=== PATIENT | male | born 1980 | race African-American/Black ===

== ENCOUNTER 2016-10-27 19:28 | Emergency (ER) | payer OTHER ==
[~2016-10-27 19:28] MED LIST: ALBUTEROL0.09 MG/A1 INH; AUGMENTIN 875875 MG PO; AZITHROMYCIN250 MG PO; MOBIC 15MG15 MG PO; PERCOCET 325 MG1 TA2 PO; PREDNISONE10 MG PO; PREDNISONE50 MG PO; PROAIR HFA0.09 MG/Ac INH; TRAMADOL50 MG PO
[2016-10-27 20:19] LABS: ABSOLUTE BASOPHIL COUNT 0 /CUMM (0.0-0.2); ABSOLUTE EOSINOPHIL COUNT 0.2 /CUMM (0.0-0.7); ABSOLUTE LYMPH COUNT 2.8 /CUMM (1.2-3.4); ABSOLUTE MONOCYTE COUNT 0.6 /CUMM (0.10-0.60); BASOPHIL % 0.2 % (0.0-2.0); EOSINOPHIL % 2.2 % (0-5); GRANULOCYTE % 62.1 % (42.2-75.2); HEMATOCRIT 43.7 % (42-52); MEAN CORPUSCULAR HGB 31.4 PG (27.0-31.0); MEAN CORPUSCULAR HGB CONC 34.3 G/DL (33.0-37.0); MEAN CORPUSCULAR VOLUME 91.5 FL (80.0-94.0); MEAN PLATELET VOLUME 7.5 FL (7.4-10.4); PLATELET COUNT 207 /CUMM (130-400); RBC DISTRIBUTION WIDTH 13.2 % (11.5-14.5); RED BLOOD CELL CT 4.78 /CUMM (4.70-6.10); WHITE BLOOD CELL COUNT 9.6 /CUMM (4.8-10.8)
[2016-10-27 21:36] VITALS: BP 111/68
--- NOTE | 2016-10-27 21:43 | ED GENERAL ADULT ---
History of Present Illness General Chief Complaint: General Adult Stated Complaint: PT DIZZY AND LIGHT HEADED IN THE AM Source: patient Exam Limitations: no limitations Vital Signs & Intake/Output Vital Signs & Intake/Output Vital Signs Date Time Temp Pulse Resp B/P Pulse O2 O2 Flow FiO2 Ox Delivery Rate 10/27 2135 98.9 78 18 111/68 96 Room Air 10/27 2034 115/64 10/27 1940 99.1 93 20 99/68 96 Room Air Allergies Coded Allergies: NO KNOWN ALLERGIES (10/15/15) Reconcile Medications No Known Home Medications Triage Note: PER PT FEELING ACHY LIGHT HEADED AND TIRED X 1 WEEK, CONGESTED AND DRY. Triage Nurses Notes Reviewed? yes Onset: Abrupt Duration: week(s): (1), constant, continues in ED Timing: recent history No Modifying Factors: none HPI: 36-year-old male comes into emergency room for further evaluation of feeling generally weak and tired and fatigued for the past week. Patient reports that today he was experiencing some lightheadedness and dizziness. Denies any chest pain or shortness of breath. Denies any fever chills but feels like he has body aches. Denies any pain currently anywhere. Denies any new medications or any other associated symptoms at this time. (PEDRO CARRILLO) Past History Travel History Traveled to [place] past 21 day No Medical History Any Pertinent Medical History? see below for history Neurological: migraine EENT: EPIGLOTITIS ACUTE BACTERIAL PHARYNGIT Cardiovascular: NONE Respiratory: NONE Gastrointestinal: NONE Hepatic: NONE Renal: NONE Musculoskeletal: SCOLIOSIS Psychiatric: NONE Endocrine: NONE Blood Disorders: NONE Cancer(s): NONE History of MRSA: No History of VRE: No History of CDIFF: No Surgical History Surgical History: N Psychosocial History Who do you live with Mother Services at Home NONE What is your primary language Maltese Tobacco Use: Current Daily Use Daily Tobacco Use Amount/Type: => 5 Cigarettes daily Family History Family History, If Any: Relation not specified for: *No pertinent family history Hx Contributory? No (PEDRO CARRILLO) Review of Systems Review of Systems Constitutional: Reports: see HPI. EENTM: Reports: no symptoms. Respiratory: Reports: no symptoms. Cardiovascular: Reports: no symptoms. GI: Reports: no symptoms. Genitourinary: Reports: no symptoms. Musculoskeletal: Reports: no symptoms. Skin: Reports: no symptoms. Neurological/Psychological: Reports: no symptoms. Hematologic/Endocrine: Reports: no symptoms. Immunologic/Allergic: Reports: no symptoms. All Other Systems: Reviewed and Negative (PEDRO CARRILLO) Physical Exam Physical Exam General Appearance: well developed/nourished, no apparent distress, alert Head: atraumatic, normal appearance Eyes: Bilateral: normal appearance, EOMI. Ears, Nose, Throat: normal pharynx, normal ENT inspection Neck: normal inspection, full range of motion Respiratory: normal breath sounds, no respiratory distress Cardiovascular: regular rate/rhythm Gastrointestinal: normal bowel sounds, soft Back: normal inspection, normal range of motion Extremities: normal inspection, normal range of motion, no edema Neurologic/Psych: awake, alert, oriented x 3, normal gait Skin: intact, normal color Core Measures ACS in differential dx? No CVA/TIA Diagnosis: No Severe Sepsis Present: No Septic Shock Present: No (PEDRO CARRILLO) Progress Differential Diagnoses I considered the following diagnoses in my evaluation of the patient: A viral syndrome, acute kidney injury, thyroid dysfunction, anemia, electrolyte imbalance, dehydration, adverse reaction to medication, Plan of Care: Orders Procedure Date/time Status URINALYSIS 10/27 2121 Complete RAPID VIRAL INFLUENZA A 10/27 2029 Complete Add-on Test (ER Only) 10/27 1950 Active TROPONIN LEVEL 10/27 1942 Complete MAGNESIUM 10/27 1942 Complete COMPREHENSIVE METABOLIC PANEL 10/27 1942 Complete CBC WITHOUT DIFFERENTIAL 10/27 1942 Complete EKG 10/27 1942 Active Laboratory Tests 10/27/162130: Urine Color YEL, Urine Clarity CLEAR, Urine pH 6.0, Ur Specific [place] 1.025, Urine Protein NEG, Urine Ketones NEG, Urine Nitrite NEG, Urine Bilirubin NEG, Urine Urobilinogen 1.0, Ur Leukocyte Esterase NEG, Ur Microscopic EXAM NOT REQUIRED, Urine Hemoglobin NEG, Urine Glucose NEG 10/27/161955: Anion Gap 8, Estimated GFR 46 L, BUN/Creatinine Ratio 5.9 L, Glucose 86, Calcium 9.0, Magnesium 2.0, Total Bilirubin 0.5, AST 21, ALT 26, Alkaline Phosphatase 82, Troponin I < 0.01, Total Protein 7.1, Albumin 4.1, Globulin 3.0, Albumin/Globulin Ratio 1.4, CBC w Diff NO MAN DIFF REQ, RBC 4.78, MCV 91.5, MCH 31.4 H, RDW 13.2, MPV 7.5, Gran % 62.1, Lymphocytes % 29.1, Monocytes % 6.4, Eosinophils % 2.2, Basophils % 0.2, Absolute Granulocytes 6.0, Absolute Lymphocytes 2.8, Absolute Monocytes 0.6, Absolute Eosinophils 0.2, Absolute Basophils 0, PUBS MCHC 34.3 10/27/16 1950: Troponin I Cancelled Initial ED EKG: normal intervals, normal p-waves, normal sinus rhythm, rate (82) (KARYNA BERTRAND,PEDRO) Departure Departure Disposition: HOME OR SELF CARE Condition: Stable Clinical Impression Primary Impression: Acute kidney injury Referrals: PATTI BARRIGA DO (PCP/Family) Additional Instructions: Follow-up with your primary care doctor for further evaluation of your elevated kidney function. Return if any other concerns worsening symptoms. Drink plenty of water at home. Please go over all results of today's visit with your primary care doctor. Contact your primary care doctor to let them know you were here in the emergency room. There may be nonspecific findings which may not be related to your visit today here in the emergency room but may require further evaluation and chronic monitoring by your primary care doctor. If you had a laceration today the chance of foreign body always remains. You should follow-up with your primary care doctor for recheck in 3-5 days for a wound check. If you had an x-ray done there is a chance that a fracture could have been missed on initial read and you should follow-up with your primary care doctor for repeat x-rays if symptoms persist. If your blood pressure was elevated here in the emergency room please have rechecked by her primary care doctor within the next 48 hours by your primary care doctor. If you were prescribed a narcotic here in the emergency room or any type of controlled substances you're not allowed to drive while taking this medication or operate any type of heavy machinery. Narcotics can make you feel lightheaded dizziness nausea and can cause constipation. You may need to sweet pickle maker a stool softener. Thank you for choosing [facility] emergency room. Please return to the emergency room immediately if you have any other concerns worsening of symptoms. Departure Forms: Customer Survey General Discharge Information Prescriptions: Current Visit Scripts No Known Home Medications Comments Patient clinically looks well. Nontoxic-appearing. Patient needs follow-up with primary care doctor. Slightly elevated creatinine. Return if any other concerns worsening symptoms. Reevaluated multiple times. Patient needs to drink lots of water at home to stay hydrated. Case discussed with Dr. orta. (PEDRO CARRILLO) PA/AIRCRAFT STRUCTURAL DESIGN ENGINEER Co-Sign Statement Statement: ED Attending supervision documentation- [] I saw and evaluated the patient. I have also reviewed all the pertinent lab results and diagnostic results. I agree with the findings and the plan of care as documented in the PA's/AIRCRAFT STRUCTURAL DESIGN ENGINEER's documentation. [X] I have reviewed the ED Record and agree with the PA's/AIRCRAFT STRUCTURAL DESIGN ENGINEER's documentation. [] Additions or exceptions (if any) to the PAs/AIRCRAFT STRUCTURAL DESIGN ENGINEER's note and plan are summarized below: [] (ADRY HUSSEIN,FRANCIS) Critical Care Note Critical Care Note Critical Care Time: non-applicable (PEDRO CARRILLO)
== END 2016-10-27 22:27 ==
LOC: ERH 19:28
PROVIDERS: Emergency Medicine
DX: N17.9 Acute kidney failure, unspecified (principal)
CPT/HCPCS: 81003; 87804; 87804-59; 93005; 93010

== ENCOUNTER 2017-02-26 13:51 | Emergency (ER) | payer OTHER ==
[~2017-02-26] VITALS: Ht 193 cm; Wt 91.6 kg
--- NOTE | 2017-02-26 14:11 | ED THROAT/DENTAL COMPLAINT ---
History of Present Illness General Chief Complaint: Sore Throat, Dental Pain Stated Complaint: SORE THORAT, "FEELS LIKE IT IS CLOSING", Source: patient, old records, friend Exam Limitations: no limitations Vital Signs & Intake/Output Vital Signs & Intake/Output Vital Signs Date Time Temp Pulse Resp B/P B/P Pulse O2 O2 Flow FiO2 Mean Ox Delivery Rate 02/26 1359 98.4 102 18 133/84 98 Room Air Allergies Coded Allergies: NO KNOWN ALLERGIES (10/15/15) Reconcile Medications No Known Home Medications Triage Note: 36 YO MALE TO TRIAGE C/O FEELS LIKE HIS THROAT IS CLOSING. STATES HX OF EPIGLOTITIS X2 AND "THIS FEELS THE SAME" DENIES PAIN TO THROAT, STATES IT JUST FEELS TIGHT. DENIES SOB, RA SATS 97%. Triage Nurses Notes Reviewed? yes HPI: Patient presents to the emergency room with feeling like his throat was closing up. Patient states that he feels very similar to when he had epiglottitis the past. Patient woke up feeling fine but throughout the morning his symptoms slowly started. Patient does have a slightly sore throat. The pain is aching in nature. There is no radiation. There are no aggravating or mitigating factors. There is no difficulty swallowing. There are no fevers or chills. Patient denies any difficulty breathing. Patient is not tripoding and is handling his own secretions. Past History Travel History Traveled to [place] past 21 day No Medical History Any Pertinent Medical History? see below for history Neurological: migraine EENT: EPIGLOTITIS ACUTE BACTERIAL PHARYNGIT Cardiovascular: NONE Respiratory: NONE Gastrointestinal: NONE Hepatic: NONE Renal: NONE Musculoskeletal: SCOLIOSIS Psychiatric: NONE Endocrine: NONE Blood Disorders: NONE Cancer(s): NONE History of MRSA: No History of VRE: No History of CDIFF: No Surgical History Surgical History: non-contributory, N Psychosocial History Who do you live with Mother Services at Home NONE What is your primary language Albanian Tobacco Use: Current Daily Use Daily Tobacco Use Amount/Type: => 5 Cigarettes daily ETOH Use: occasional use Illicit Drug Use: denies illicit drug use Family History Family History, If Any: Relation not specified for: *No pertinent family history Hx Contributory? No Review of Systems Review of Systems Constitutional: Reports: no symptoms. EENTM: Reports: see HPI, throat pain. Respiratory: Reports: no symptoms. Cardiovascular: Reports: no symptoms. GI: Reports: no symptoms. Genitourinary: Reports: no symptoms. Musculoskeletal: Reports: no symptoms. Skin: Reports: no symptoms. Neurological/Psychological: Reports: no symptoms. Hematologic/Endocrine: Reports: no symptoms. Immunologic/Allergic: Reports: no symptoms. All Other Systems: Reviewed and Negative Physical Exam Physical Exam General Appearance: well developed/nourished, alert, awake, anxious, moderate distress Head: atraumatic, normal appearance Eyes: Bilateral: PERRL, EOMI. Nose: normal inspection Mouth/Throat: normal mouth inspection, pharynx normal Neck: normal inspection, supple, full range of motion, NO ADENOPATHY Cardiovascular/Respiratory: normal breath sounds, normal peripheral pulses, regular rate/rhythm, no respiratory distress Neurologic/Psych: no motor/sensory deficits, awake, alert, oriented x 3, normal gait, normal mood/affect Skin: intact, normal color, warm/dry Core Measures ACS in differential dx? No Severe Sepsis Present: No Septic Shock Present: No Progress Differential Diagnosis: epiglottitis, strep pharyngitis Plan of Care: Orders Procedure Date/time Status BLOOD CULTURE 02/26 1410 Active COMPREHENSIVE METABOLIC PANEL 02/26 1410 Complete CBC WITHOUT DIFFERENTIAL 02/26 141 Complete Laboratory Tests 02/26/17 1442: Anion Gap 10, Estimated GFR > 60, BUN/Creatinine Ratio 8.0, Glucose 106 H, Calcium 8.9, Total Bilirubin 0.6, AST 23, ALT 29, Alkaline Phosphatase 87, Total Protein 6.9, Albumin 3.9, Globulin 3.0, Albumin/Globulin Ratio 1.3, CBC w Diff NO MAN DIFF REQ, RBC 4.65 L, MCV 92.5, MCH 31.3 H, RDW 12.8, MPV 7.5, Gran % 77.0 H, Lymphocytes % 17.8 L, Monocytes % 3.3, Eosinophils % 1.9, Basophils % 0 L, Absolute Granulocytes 8.2 H, Absolute Lymphocytes 1.9, Absolute Monocytes 0.3, Absolute Eosinophils 0.2, Absolute Basophils 0, PUBS MCHC 33.8 Microbiology 02/26 1442 BLOOD: Blood Culture - RECD 02/26 1436 BLOOD: Blood Culture - RECD Diagnostic Imaging: Viewed by Me: CT Scan. Discussed w/RAD: CT Scan. Radiology Impression: PATIENT: SHAMEKA ARTEAGA PRESENT AGE: 36 PATIENT ACCOUNT NO: [id number] : 79 LOCATION: [facility] ORDERING PHYSICIAN: ESA QUIROGA MD SERVICE DATE: 02/26/17 EXAM TYPE: CAT - CT NECK W IV CONTRAST EXAMINATION: CT NECK WITH CONTRAST CLINICAL INFORMATION: 36-year-old man with possible epiglottitis. COMPARISON: 08/03/2012 CT TECHNIQUE: Helical CT images were acquired through the neck following intravenous administration of 95 mL of Optiray 320. DLP: 474 mGy-cm FINDINGS: The epiglottis does not appear to be particularly thickened, especially in comparison to the prior study which showed significant submucosal edema. There is some effacement of the vallecula on both sides, left greater than right, that appears to be due to mild hypertrophy of the lingular tonsils. The airway itself is generally patent with mild transverse narrowing at the level of the glottis. This appears to be related to some thickening involving the aryepiglottic folds that was also noted on the prior exam and is of uncertain chronicity. No drainable fluid collection is appreciated. Subcentimeter lymph nodes are seen throughout the neck, mildly prominent in number, although not convincingly abnormal in size or enhancement characteristics by standard CT criteria. The submandibular, parotid, and thyroid glands are normal in appearance. Limited assessment of the skull base is unremarkable. There is mild paraseptal emphysema seen at the lung apices. Small mucus retention cysts are present in both maxillary sinuses. IMPRESSION: Mild asymmetric effacement of the vallecula is suspected to be due to to hypertrophy of the lingular tonsils. No convincing CT evidence of epiglottitis. Mild thickening of the aryepiglottic folds was also seen on the prior exam and is potentially chronic. DICTATED BY: SAMEER REILLY MD DATE/TIME DICTATED:02/26/171541 PHOTO RETOUCHER:ANTONIO DATE/TIME TRANSCRIBED:1541 CONFIDENTIAL, DO NOT COPY WITHOUT APPROPRIATE AUTHORIZATION. < Electronically signed in Other Vendor System> SIGNED BY: SAMEER REILLY MD 07/05 7954 Comments: Patient is feeling much better. Patient is stable for discharge. Departure Departure Disposition: HOME OR SELF CARE Condition: Stable Clinical Impression Primary Impression: Pharyngitis Qualifiers: Pharyngitis/tonsillitis etiology: unspecified etiology Qualified Code: J02.9 - Acute pharyngitis, unspecified Referrals: PATTI BARRIGA DO (PCP/Family) Additional Instructions: RETURN IF SYMPTOMS WORSEN OR FOR ANY CONCERNS Departure Forms: Customer Survey General Discharge Information Prescriptions: Current Visit Scripts Amoxicillin/Potassium Clav (Augmentin 022-125 Tablet) 1 TAB PO BID #10 TAB Prednisone 1 TAB PO DAILY #9 TAB TAKE 2 TABS FOR 3 DAYS THEN TAKE 1 TAB FOR 3 DAYS
[2017-02-26 14:55] LABS: ABSOLUTE BASOPHIL COUNT 0 /CUMM (0.0-0.2); ABSOLUTE EOSINOPHIL COUNT 0.2 /CUMM (0.0-0.7); ABSOLUTE GRANULOCYTE CT 8.2 /CUMM (1.4-6.5); ABSOLUTE LYMPH COUNT 1.9 /CUMM (1.2-3.4); ABSOLUTE MONOCYTE COUNT 0.3 /CUMM (0.10-0.60); BASOPHIL % 0 % (0.0-2.0); EOSINOPHIL % 1.9 % (0-5); MEAN CORPUSCULAR HGB 31.3 PG (27.0-31.0); MEAN CORPUSCULAR HGB CONC 33.8 G/DL (33.0-37.0); MEAN CORPUSCULAR VOLUME 92.5 FL (80.0-94.0); MEAN PLATELET VOLUME 7.5 FL (7.4-10.4); PLATELET COUNT 192 /CUMM (130-400); RBC DISTRIBUTION WIDTH 12.8 % (11.5-14.5); RED BLOOD CELL CT 4.65 /CUMM (4.70-6.10); WHITE BLOOD CELL COUNT 10.7 /CUMM (4.8-10.8)
--- NOTE | 2017-02-26 15:56 | CT SCAN REPORT ---
EXAMINATION: CT NECK WITH CONTRAST CLINICAL INFORMATION: 36-year-old man with possible epiglottitis. COMPARISON: 08/03/2012 CT TECHNIQUE: Helical CT images were acquired through the neck following intravenous administration of 95 mL of Optiray 320. DLP: 474 mGy-cm FINDINGS: The epiglottis does not appear to be particularly thickened, especially in comparison to the prior study which showed significant submucosal edema. There is some effacement of the vallecula on both sides, left greater than right, that appears to be due to mild hypertrophy of the lingular tonsils. The airway itself is generally patent with mild transverse narrowing at the level of the glottis. This appears to be related to some thickening involving the aryepiglottic folds that was also noted on the prior exam and is of uncertain chronicity. No drainable fluid collection is appreciated. Subcentimeter lymph nodes are seen throughout the neck, mildly prominent in number, although not convincingly abnormal in size or enhancement characteristics by standard CT criteria. The submandibular, parotid, and thyroid glands are normal in appearance. Limited assessment of the skull base is unremarkable. There is mild paraseptal emphysema seen at the lung apices. Small mucus retention cysts are present in both maxillary sinuses. IMPRESSION: Mild asymmetric effacement of the vallecula is suspected to be due to to hypertrophy of the lingular tonsils. No convincing CT evidence of epiglottitis. Mild thickening of the aryepiglottic folds was also seen on the prior exam and is potentially chronic.
[2017-02-26] MEDS ORDERED: AUGMENTIN 875-1 EACH PO (16:19)
[2017-02-26] MEDS ORDERED: PREDNISONE10 M2 PO (16:19)
[2017-02-26 16:22] VITALS: BP 125/72
== END 2017-02-26 16:27 ==
LOC: ERH 13:51
PROVIDERS: Emergency Medicine
DX: J02.9 Acute pharyngitis, unspecified (principal); F17.210 Nicotine dependence, cigarettes, uncomplicated
CPT/HCPCS: 87040; 96374; 96375; J2930

== ENCOUNTER 2017-03-17 13:04 | Emergency (ER) | payer OTHER ==
[~2017-03-17] VITALS: Ht 193 cm; Wt 95.3 kg
[~2017-03-17 13:04] MED LIST changes: +AUGMENTIN 875-1 EACH PO; +PREDNISONE10 M2 PO
--- NOTE | 2017-03-17 13:40 | ED MVC/FALL/TRAUMA COMPLAINT ---
History of Present Illness General Chief Complaint: General Adult Stated Complaint: R HIP/BACK PAIN S/P FALL OFF TRUCK Source: patient Exam Limitations: no limitations Vital Signs & Intake/Output Vital Signs & Intake/Output Vital Signs Date Time Temp Pulse Resp B/P B/P Pulse O2 O2 Flow FiO2 Mean Ox Delivery Rate 03/17 1312 98.4 80 20 132/80 98 Room Air Allergies Coded Allergies: NO KNOWN ALLERGIES (10/15/15) Reconcile Medications Cyclobenzaprine HCl 10 MG TABLET 1 TAB PO QPM PRN muscle strain Triage Note: PT STATES HE WAS IN THE BACK OF A TRUCK UNLOADING SUPPLIES AND THE RUBBER TIRE CURER DROVE OFF AND HE FELL BACKWARDS ONTO HIS R HIP. PT C/O OF RIGHT HIP PAIN AND LOWER BACK PAIN. -LOC/PT DENIES HEAD TRAUMA Triage Nurses Notes Reviewed? yes Onset: Abrupt Duration: day(s): Timing: recent history Severity: moderate Injuries/Fall Location: upper extremity, back, lower extremity Method of Injury: fall Loss of Consciousness: no loss of consciousness Modifying Factors: Worsens With: movement. HPI: 37-year-old male with history of scoliosis presents emergency Department status post fall on Tuesday. Patient states that he was unloading a truck at work and the local delivery truck driver pulled away causing him to fall off the loading dock. The patient estimates that he fell about 6 feet onto his right hand leg and hip. He is complaining of right-sided and midline back pain, right hip pain and right right lower rib cage pain. Pain is worse with deep breathing and movement. Patient was able to walk following his fall and continued to work that day, however the next 2 days his pain has increased. He has not taken any medication for his pain, his pain has been getting worse since Tuesday. He tried icy hot however his symptoms have persisted. He denies head trauma, loss of consciousness, headache, visual changes, nausea, vomiting, abdominal pain, numbness, tingling. (DIMA HUDSON PA-C) Past History Travel History Traveled to [place] past 21 day No Medical History Any Pertinent Medical History? see below for history Neurological: migraine EENT: EPIGLOTITIS ACUTE BACTERIAL PHARYNGIT Cardiovascular: NONE Respiratory: NONE Gastrointestinal: NONE Hepatic: NONE Renal: NONE Musculoskeletal: SCOLIOSIS Psychiatric: NONE Endocrine: NONE Blood Disorders: NONE Cancer(s): NONE History of MRSA: No History of VRE: No History of CDIFF: No Surgical History Surgical History: non-contributory, N Psychosocial History Who do you live with Mother Services at Home NONE What is your primary language Venezuelan Tobacco Use: Current Daily Use Daily Tobacco Use Amount/Type: => 5 Cigarettes daily ETOH Use: occasional use Illicit Drug Use: cocaine, marijuana Family History Family History, If Any: Relation not specified for: *No pertinent family history Hx Contributory? No (DIMA HUDSON PA-C) Review of Systems Review of Systems Constitutional: Reports: no symptoms. Eyes: Reports: no symptoms. Ears, Nose, Throat, Mouth: Reports: no symptoms. Respiratory: Reports: see HPI. Cardiovascular: Reports: no symptoms. Gastrointestinal/Abdominal: Reports: no symptoms. Genitourinary: Reports: no symptoms. Musculoskeletal: Reports: back pain. Skin: Reports: no symptoms. Neurological/Psychological: Reports: no symptoms. All Other Systems: Reviewed and Negative (DIMA HUDSON PA-C) Physical Exam Physical Exam General Appearance: well developed/nourished, no apparent distress, alert, awake Head: atraumatic, normal appearance Eyes: Bilateral: normal appearance, PERRL, EOMI. Ears, Nose, Throat, Mouth: hearing grossly normal Neck: normal inspection, supple, no midline tenderness Respiratory: normal breath sounds, no respiratory distress, lungs clear, right lateral chest wall tenderness Cardiovascular: regular rate/rhythm Gastrointestinal: normal bowel sounds, soft, non-tender Back: normal range of motion, vertebral tenderness (of thoracic and lumbar spine ), Right paraspinal muscle tenderness Extremities: normal range of motion, right lateral hip tenderness Neurologic/Psych: no motor/sensory deficits, awake, alert, oriented x 3 Skin: intact, normal color, warm/dry Core Measures ACS in differential dx? No Severe Sepsis Present: No Septic Shock Present: No (DIMA HUDSON PA-C) Progress Differential Diagnosis: abd injury, C/T/L spine injury, ext injury, ICH, pelvis injury, pnemothorax, spinal cord injury Plan of Care: Current Medications Sig/Bharat Start time Last Medication Dose Stop Time Status Admin Ketorolac 30 MG ONCE ONE 03/17 1545 AC Tromethamine 03/17 1546 (Toradol) Given Mechanism of injury possible vertebral fracture as patient fell from greater than 6 feet onto his right side and back. CT scan ordered to assess his vertebrae further. Patient does have chronic back pain from scoliosis. He is neurologically intact and denies head trauma. The patient was discussed with Dr. Maynard. Imaging shows no acute fracture. The patient is in no acute distress, he is able to ambulate entering and exiting the emergency room. The patient was given a shot of IM Toradol here in the emergency room for inflammation. The patient was given a course of muscle relaxants for his muscular pain following his fall. He was instructed to apply ice to his sore muscles. He will take Tylenol or Motrin as prescribed for pain and inflammation. The patient will follow up with his primary care doctor as needed. He will return with any worsening symptoms or concerns. The patient is in agreement with the plan of care. (BECCA BEEBE,DIMA) Diagnostic Imaging: Viewed by Me: Radiology Read, CT Scan. Discussed w/RAD: Radiology Read, CT Scan. Radiology Impression: PATIENT: SHAMEKA ARTEAGA PRESENT AGE: 37 PATIENT ACCOUNT NO: [id number] : 79 LOCATION: [facility] ORDERING PHYSICIAN: DIMA HUDSON PA-C SERVICE DATE: 03/17/17 EXAM TYPE: CAT - CT LUMB SPINE WO IV CONTRAST; CT THOR SPINE WO IV CONTRAST EXAMINATION: CT LUMB SPINE WO IV CONTRAST, CT THOR SPINE WO IV CONTRAST CLINICAL INFORMATION: Trauma by falling 6 feet. COMPARISON: None. TECHNIQUE: CT of the lumbar spine and CT of the T-spine with coronal and sagittal reformats obtained at the acquisition workstation. FINDINGS: Web Developer Programmer views reveal normal vertebral height and alignment. T-spine: There is no evidence of fracture or subluxation. The paraspinal soft tissues are normal. The visualized ribs are intact. There is no sign of lung contusion. The patient does have bilateral apical pleural blebs and additional pleural-based cysts the largest of which is located in the left upper lobe abutting the superior mediastinum. LS-spine: Vertebral height alignment are preserved. Posterior elements are normal. Small juxta-articular geodes are seen at several levels involving the vertebral endplates. The largest is located in the posterior inferior aspect of the L4 vertebral body. Paraspinal soft tissues are normal. IMPRESSION: No evidence of fracture or subluxation involving the T spine are LS-spine. Incidental bilateral apical blebs. Juxta articular geode is in the LS-spine. DICTATED BY: YANELIS RODAS MD DATE/TIME DICTATED:03/17/171521 EVENT EXECUTIVE:ANTONIO DATE/TIME TRANSCRIBED:03/17/171521 CONFIDENTIAL, DO NOT COPY WITHOUT APPROPRIATE AUTHORIZATION. <Electronically signed in Other Vendor System> SIGNED BY: YANELIS RODAS MD 03/17/171535, PATIENT: SHAMEKA ARTEAGA PRESENT AGE: 37 PATIENT ACCOUNT NO: [id number] : 79 LOCATION: [facility] ORDERING PHYSICIAN: DIMA HUDSON PA-C SERVICE DATE: 03/17/17 EXAM TYPE: CAT - CT LUMB SPINE WO IV CONTRAST; CT THOR SPINE WO IV CONTRAST EXAMINATION: CT LUMB SPINE WO IV CONTRAST , CT THOR SPINE WO IV CONTRAST CLINICAL INFORMATION: Trauma by falling 6 feet. COMPARISON: None. TECHNIQUE: CT of the lumbar spine and CT of the T-spine with coronal and sagittal reformats obtained at the acquisition workstation. FINDINGS : Web Developer Programmer views reveal normal vertebral height and alignment. T-spine: There is no evidence of fracture or subluxation. The paraspinal soft tissues are normal. The visualized ribs are intact. There is no sign of lung contusion. The patient does have bilateral apical pleural blebs and additional pleural-based cysts the largest of which is located in the left upper lobe abutting the superior mediastinum. LS-spine: Vertebral height alignment are preserved. Posterior elements are normal. Small juxta-articular geodes are seen at several levels involving the vertebral endplates. The largest is located in the posterior inferior aspect of the L4 vertebral body. Paraspinal soft tissues are normal. IMPRESSION: No evidence of fracture or subluxation involving the T spine are LS- spine. Incidental bilateral apical blebs. Juxta articular geode is in the LS- spine. DICTATED BY: YANELIS RODAS MD DATE/TIME DICTATED:03/17/171521 EVENT EXECUTIVE:ANTONIO DATE/TIME TRANSCRIBED:03/17/171521 CONFIDENTIAL, DO NOT COPY WITHOUT APPROPRIATE AUTHORIZATION. <Electronically signed in Other Vendor System> SIGNED BY: YANELIS RODAS MD 03/17/171535, PATIENT: SHAMEKA ARTEAGA PRESENT AGE: 37 PATIENT ACCOUNT NO: [id number] : 79 LOCATION: [facility] ORDERING PHYSICIAN: DIMA HUDSON PA-C SERVICE DATE: 03/17/17 EXAM TYPE: RAD - XRY-RIBS UNILATERAL-RIGHT EXAMINATION: XR RIBS, RIGHT CLINICAL INFORMATION: Right-sided pain. Exacerbated by breathing COMPARISON: Chest x-ray 02/11/2016 TECHNIQUE: PA chest. 4 oblique views of right ribs. FINDINGS: Lungs are clear. No consolidation, pneumothorax, or pleural effusion. The cardiomediastinal silhouette and pulmonary vasculature are normal. Osseous structures are unremarkable. Ribs are intact. No fractures are identified. IMPRESSION: Unremarkable examination. DICTATED BY: SOFIYA ENGLISH MD DATE/TIME DICTATED:03/17/171455 EVENT EXECUTIVE:ANTONIO DATE/TIME TRANSCRIBED:03/17/171455 CONFIDENTIAL, DO NOT COPY WITHOUT APPROPRIATE AUTHORIZATION. <Electronically signed in Other Vendor System> SIGNED BY: SOFIYA ENGLISH MD 03/17/17 150, PATIENT: SHAMEKA ARTEAGA PRESENT AGE: 37 PATIENT ACCOUNT NO: [id number] : 79 LOCATION: [facility] ORDERING PHYSICIAN: DIMA HUDSON PA-C SERVICE DATE: 03/17/17 EXAM TYPE: RAD - XRY-HIP 2-3 VIEWS, RIGHT EXAMINATION: XR HIP, RIGHT CLINICAL INFORMATION: Pain after fall. Evaluate for fracture. COMPARISON: None TECHNIQUE: Pelvis, AP view Right hip, AP and frog-leg lateral views. FINDINGS: The osseous pelvic ring is intact. Bones have normal alignment. Pubic rami, pubic symphysis, sacrum and sacroiliac joints are unremarkable. The right femoral head is well-positioned within the intact acetabulum. There is mild osteophyte formation of the right hip. No evidence of femoral fracture, subluxation or focal soft tissue swelling. IMPRESSION: 1. Mild osteoarthrosis of the right hip. 2. No acute fracture or malalignment within the pelvis or hips. DICTATED BY: SONU CHOE MD DATE/ TIME DICTATED:03/17/171456 EVENT EXECUTIVE:ANTONIO DATE/TIME TRANSCRIBED: 03/17/171456 CONFIDENTIAL, DO NOT COPY WITHOUT APPROPRIATE AUTHORIZATION. < Electronically signed in Other Vendor System> SIGNED BY: SONU CHOE MD 03/17/17 1502 (DIMA HUDSON PA-C) Departure Departure Disposition: HOME OR SELF CARE Condition: Stable Clinical Impression Primary Impression: Muscle strain Secondary Impressions: Back pain Referrals: PATTI BARRIGA DO (PCP/Family) Additional Instructions: Take Tylenol or Motrin as prescribed as needed for your muscular pain. Take Flexeril for your muscle strain as prescribed, take this medication at night, this medication can cause drowsiness do not drive or drink alcohol on this medication. Follow-up with your primary care doctor, call to inform them that he was seen and evaluated today. Return with any worsening symptoms or concerns Departure Forms: Customer Survey General Discharge Information Prescriptions: Current Visit Scripts Cyclobenzaprine HCl 1 TAB PO QPM PRN muscle strain #8 TAB (DIMA HUDSON PA-C) PA/MUSIC ARTIST Co-Sign Statement Statement: ED Attending supervision documentation- [] I saw and evaluated the patient. I have also reviewed all the pertinent lab results and diagnostic results. I agree with the findings and the plan of care as documented in the PA's/MUSIC ARTIST's documentation. [X] I have reviewed the ED Record and agree with the PA's/MUSIC ARTIST's documentation. [] Additions or exceptions (if any) to the PAs/MUSIC ARTIST's note and plan are summarized below: [] (JUNAID HUSSEIN,ESA Clark)
--- NOTE | 2017-03-17 15:02 | RADIOLOGY REPORT ---
EXAMINATION: XR RIBS, RIGHT CLINICAL INFORMATION: Right-sided pain. Exacerbated by breathing COMPARISON: Chest x-ray 02/11/2016 TECHNIQUE: PA chest. 4 oblique views of right ribs. FINDINGS: Lungs are clear. No consolidation, pneumothorax, or pleural effusion. The cardiomediastinal silhouette and pulmonary vasculature are normal. Osseous structures are unremarkable. Ribs are intact. No fractures are identified. IMPRESSION: Unremarkable examination.
--- NOTE | 2017-03-17 15:02 | RADIOLOGY REPORT ---
EXAMINATION: XR HIP, RIGHT CLINICAL INFORMATION: Pain after fall. Evaluate for fracture. COMPARISON: None TECHNIQUE: Pelvis, AP view Right hip, AP and frog-leg lateral views. FINDINGS: The osseous pelvic ring is intact. Bones have normal alignment. Pubic rami, pubic symphysis, sacrum and sacroiliac joints are unremarkable. The right femoral head is well-positioned within the intact acetabulum. There is mild osteophyte formation of the right hip. No evidence of femoral fracture, subluxation or focal soft tissue swelling. IMPRESSION: 1. Mild osteoarthrosis of the right hip. 2. No acute fracture or malalignment within the pelvis or hips.
--- NOTE | 2017-03-17 15:36 | CT SCAN REPORT ---
EXAMINATION: CT LUMB SPINE WO IV CONTRAST, CT THOR SPINE WO IV CONTRAST CLINICAL INFORMATION: Trauma by falling 6 feet. COMPARISON: None. TECHNIQUE: CT of the lumbar spine and CT of the T-spine with coronal and sagittal reformats obtained at the acquisition workstation. FINDINGS: Tooling Supervisor views reveal normal vertebral height and alignment. T-spine: There is no evidence of fracture or subluxation. The paraspinal soft tissues are normal. The visualized ribs are intact. There is no sign of lung contusion. The patient does have bilateral apical pleural blebs and additional pleural-based cysts the largest of which is located in the left upper lobe abutting the superior mediastinum. LS-spine: Vertebral height alignment are preserved. Posterior elements are normal. Small juxta-articular geodes are seen at several levels involving the vertebral endplates. The largest is located in the posterior inferior aspect of the L4 vertebral body. Paraspinal soft tissues are normal. IMPRESSION: No evidence of fracture or subluxation involving the T spine are LS-spine. Incidental bilateral apical blebs. Juxta articular geode is in the LS-spine.
[2017-03-17] MEDS ORDERED: CYCLOBENZAPRINE10 M1 PO (15:47)
[2017-03-17 15:56] VITALS: BP 135/86
== END 2017-03-17 15:57 ==
LOC: ERH 13:04
DX: S29.012A Strain of muscle and tendon of back wall of thorax, initial encounter (principal); W17.89XA Other fall from one level to another, initial encounter; Y92.9 Unspecified place or not applicable; Y93.9 Activity, unspecified
CPT/HCPCS: 71100-RT; 73502-RT; 96372; J1885

== ENCOUNTER 2017-11-09 21:18 | Emergency (ER) | payer SELFPAY ==
[~2017-11-09] VITALS: Ht 193 cm; Wt 99.8 kg
[~2017-11-09 21:18] MED LIST changes: +CYCLOBENZAPRINE10 M1 PO
[2017-11-09 21:41] LABS: ABSOLUTE BASOPHIL COUNT 0 /CUMM (0.0-0.2); ABSOLUTE EOSINOPHIL COUNT 0.2 /CUMM (0.0-0.7); ABSOLUTE GRANULOCYTE CT 6.8 /CUMM (1.4-6.5); ABSOLUTE LYMPH COUNT 2.8 /CUMM (1.2-3.4); ABSOLUTE MONOCYTE COUNT 0.8 /CUMM (0.10-0.60); BASOPHIL % 0.4 % (0.0-2.0); EOSINOPHIL % 1.9 % (0-5); GRANULOCYTE % 64.2 % (42.2-75.2); HEMATOCRIT 45.4 % (42-52); MEAN CORPUSCULAR HGB 31.2 PG (27.0-31.0); MEAN CORPUSCULAR HGB CONC 33.9 G/DL (33.0-37.0); MEAN CORPUSCULAR VOLUME 92.2 FL (80.0-94.0); MEAN PLATELET VOLUME 7.3 FL (7.4-10.4); PLATELET COUNT 239 /CUMM (130-400); RBC DISTRIBUTION WIDTH 12.8 % (11.5-14.5); RED BLOOD CELL CT 4.93 /CUMM (4.70-6.10); WHITE BLOOD CELL COUNT 10.6 /CUMM (4.8-10.8)
--- NOTE | 2017-11-09 22:46 | RADIOLOGY REPORT ---
EXAMINATION: XR CHEST CLINICAL INFORMATION: Chest pain COMPARISON: Chest x-ray 02/11/2016 TECHNIQUE: 2 views of the chest were obtained. FINDINGS: No significant abnormality is noted involving the heart, lungs, mediastinum, bony thorax or soft tissues. IMPRESSION: Unremarkable examination.
--- NOTE | 2017-11-10 00:35 | ED CARDIAC/CP/PALPITATIONS ---
History of Present Illness General Chief Complaint: Chest Pain Stated Complaint: CHEST PAIN, LEFT ARM PAIN Source: patient Exam Limitations: no limitations Vital Signs & Intake/Output Vital Signs & Intake/Output Vital Signs Date Time Temp Pulse Resp B/P B/P Pulse O2 O2 Flow FiO2 Mean Ox Delivery Rate 11/10 0057 98 Room Air 11/09 2312 97.3 82 20 113/77 97 Room Air 11/09 2135 98.6 95 18 128/85 97 Room Air ED Intake and Output 11/10 0000 11/09 1200 Intake Total Output Total Balance Patient 220 lb Weight Weight Reported by Patient Measurement Method Allergies Coded Allergies: NO KNOWN ALLERGIES (10/15/15) Reconcile Medications Cyclobenzaprine HCl 10 MG TABLET 1 TAB PO QPM PRN muscle strain Ibuprofen 800 MG TABLET 1 TAB PO TID PRN pain Triage Note: PT FROM HOME C/O CP SINCE 0800. PT STATES HE WAS AT HOME RESTING WHEN A DULL CHEST PRESSURE BEGAN AND HAS BEEN CONSTANT EVER SINCE. PT STATES "IT FEELS LIKE I BANGED MY LEFT ARM AND ITS ALL TINGLY AND PRESSURE APPLIED FROM MY ELBOW TO MY FINGER TIPS" VSS, PT DENIES BACK PAIN, JAW PAIN,OR SOB. PT HAD EKG COMPLETED. PT DENIES N/V AND DENIES ANY OTHER COMPLAINTS AT THIS TIME. Triage Nurses Notes Reviewed? yes Onset: Abrupt Duration: day(s): (1), constant, continues in ED Timing: single episode today Quality/Severity: moderate, dull Location: substernal Radiation: no radiation Activities at Onset: sleep Prior Chest Pain/Card Workup: no prior chest pain, no prior cardiac workup, non- cardiac Nitro Today/Relief: no nitro taken today Aspirin Today: no aspirin today Associated Symptoms: numbness left arm HPI: 37-year-old male with no past medical history presents for evaluation of chest pain. Patient states the symptoms started at 8:00 this morning and woke him up from sleep. The pain is located in the center of his chest described as dull. It has been constant since. He feels like it improves when he rubs his chest with his hand or squeeze the pillow against his chest. He never had this before. He states that it is associated with numbness and pressure in his left forearm. No shortness of breath nausea vomiting sweats chills hemoptysis lower leg edema. No recent surgery or trauma. No coughing or fever. He does not take any estrogen/testosterone. He is a current every day smoker and uses marijuana daily. No cocaine. (Mario Mckeon) Past History Travel History Traveled to [place] past 21 day No Medical History Any Pertinent Medical History? see below for history Neurological: migraine EENT: EPIGLOTITIS ACUTE BACTERIAL PHARYNGIT Cardiovascular: NONE Respiratory: NONE Gastrointestinal: NONE Hepatic: NONE Renal: NONE Musculoskeletal: SCOLIOSIS Psychiatric: NONE Endocrine: NONE Blood Disorders: NONE Cancer(s): NONE History of MRSA: No History of VRE: No History of CDIFF: No Surgical History Surgical History: non-contributory, N Psychosocial History Who do you live with Mother Services at Home NONE What is your primary language Irish Tobacco Use: Current Daily Use Daily Tobacco Use Amount/Type: => 5 Cigarettes daily Family History Family History, If Any: Relation not specified for: *No pertinent family history Hx Contributory? No (Mario Mckeon) Review of Systems Review of Systems Constitutional: Reports: no symptoms. EENTM: Reports: no symptoms. Respiratory: Reports: no symptoms. Cardiovascular: Reports: see HPI, chest pain. GI: Reports: no symptoms. Genitourinary: Reports: no symptoms. Musculoskeletal: Reports: no symptoms. Skin: Reports: no symptoms. Neurological/Psychological: Reports: numbness, paresthesia. Hematologic/Endocrine: Reports: no symptoms. Immunologic/Allergic: Reports: no symptoms. All Other Systems: Reviewed and Negative (Mario Mckeon) Physical Exam Physical Exam General Appearance: well developed/nourished, no apparent distress, alert, awake Head: atraumatic, normal appearance Eyes: Bilateral: normal appearance, PERRL, EOMI. Ears, Nose, Throat: normal pharynx, normal ENT inspection, hearing grossly normal Neck: normal inspection, supple, full range of motion Respiratory: normal breath sounds, chest non-tender, no respiratory distress, lungs clear Cardiovascular: regular rate/rhythm, normal peripheral pulses Peripheral Pulses: 2+ radial (R), 2+ radial (L) Gastrointestinal: normal bowel sounds, soft, non-tender, no organomegaly Back: normal inspection, normal range of motion, no vertebral tenderness Extremities: normal inspection, normal range of motion, no edema Neurologic/Psych: no motor/sensory deficits, awake, alert, oriented x 3, normal gait Skin: intact, normal color, warm/dry Lymphatic: no anterior cervical kali Core Measures ACS in differential dx? Yes No ASA d/t ruled out CVA/TIA Diagnosis No Sepsis Present: No Sepsis Focused Exam Completed? No (Mario Mckeon) Progress Differential Diagnosis: AMI, aortic dissection, musculoskeletal pain, pericarditis, pneumonia, pneumothorax, PSVT, pulmonary embolism, PUD/GERD, PVCs/ PACs, unstable angina Plan of Care: Orders Procedure Date/time Status TROPONIN LEVEL 11/10 46 Complete EKG 11/10 46 Active TROPONIN LEVEL 11/09 2125 Complete COMPREHENSIVE METABOLIC PANEL 11/09 2125 Complete CBC WITHOUT DIFFERENTIAL 11/09 2125 Complete EKG 11/09 2118 Active Laboratory Tests 11/10/17 005: Troponin I < 0.01 11/09/172129: Anion Gap 12, Estimated GFR > 60, BUN/Creatinine Ratio 10.0, Glucose 99, Calcium 9.6, Total Bilirubin 0.5, AST 21, ALT 24, Alkaline Phosphatase 91, Troponin I < 0.01, Total Protein 7.6, Albumin 4.5, Globulin 3.1, Albumin/Globulin Ratio 1.5, CBC w Diff NO MAN DIFF REQ, RBC 4.93, MCV 92.2, MCH 31.2 H, MCHC 33.9, RDW 12.8 , MPV 7.3 L, Gran % 64.2, Lymphocytes % 26.1, Monocytes % 7.4, Eosinophils % 1.9, Basophils % 0.4, Absolute Granulocytes 6.8 H, Absolute Lymphocytes 2.8, Absolute Monocytes 0.8 H, Absolute Eosinophils 0.2, Absolute Basophils 0 Patient seen and evaluated. Chest pain since 8:00 this morning. Awoke from sleep. It is not worse with exertion. He's never had this before. He is not taking any medicine for this. Denies any cocaine use. All blood work initially is within normal limits including a negative troponin. EKG is stable. Chest x- ray is clear. Patient is PERC negative. He does feel like the pain is somewhat improved since it first started but is still present. Patient was medicated with Tylenol. Will check a repeat EKG and troponin. Second EKG is unchanged. Troponin is still pending. Patient signed out to Dr. Rowley pending repeat trop. Diagnostic Imaging: Viewed by Me: Radiology Read. Discussed w/RAD: Radiology Read. Radiology Impression: PATIENT: SHAMEKA ARTEAGA PRESENT AGE: 37 PATIENT ACCOUNT NO: [id number] : 79 LOCATION: [facility] ORDERING PHYSICIAN: Mario BERTRAND SERVICE DATE: 11/09/17 EXAM TYPE: RAD - XRY- CHEST XRAY, TWO VIEWS EXAMINATION: XR CHEST CLINICAL INFORMATION: Chest pain COMPARISON: Chest x-ray 02/11/2016 TECHNIQUE: 2 views of the chest were obtained. FINDINGS: No significant abnormality is noted involving the heart, lungs, mediastinum, bony thorax or soft tissues. IMPRESSION: Unremarkable examination. DICTATED BY: Luis E Saeed MD DATE/TIME DICTATED:11/09/172240 TOBY MAKER:ANTONIO DATE/TIME TRANSCRIBED:11/09/172240 CONFIDENTIAL, DO NOT COPY WITHOUT APPROPRIATE AUTHORIZATION. <Electronically signed in Other Vendor System> SIGNED BY: Luis E Saeed MD 11/09/172245 Initial ED EKG: normal sinus rhythm, no ST T wave changes Repeat EKG: unchanged (Mario Mckeon) Departure Departure Condition: Stable Clinical Impression Primary Impression: Chest pain Qualifiers: Chest pain type: unspecified Qualified Code: R07.9 - Chest pain, unspecified Referrals: Aimee Arredondo DO (PCP/Family) Additional Instructions: Rest and drink plenty of fluids. Make a follow-up with your primary care doctor as soon as possible. Use Tylenol and ibuprofen as needed for pain. Monitor symptoms return with any concerns. Departure Forms: Customer Survey General Discharge Information Prescriptions: Current Visit Scripts Ibuprofen 1 TAB PO TID PRN pain #30 TAB (Mario Mckeon) Departure Time of Disposition: 220 Disposition: HOME OR SELF CARE PA/SPECIAL MAKEUP FX ARTIST INSTRUCTOR Co-Sign Statement Statement: ED Attending supervision documentation- x I saw and evaluated the patient. I have also reviewed all the pertinent lab results and diagnostic results. I agree with the findings and the plan of care as documented in the PA's/SPECIAL MAKEUP FX ARTIST INSTRUCTOR's documentation. [] I have reviewed the ED Record and agree with the PA's/SPECIAL MAKEUP FX ARTIST INSTRUCTOR's documentation. [] Additions or exceptions (if any) to the PAs/SPECIAL MAKEUP FX ARTIST INSTRUCTOR's note and plan are summarized below: [] (Tadeo HUSSEIN,Artie) Critical Care Note Critical Care Note Critical Care Time: non-applicable (Mario Mckeon)
[2017-11-10] MEDS ORDERED: IBUPROFEN800 M1 PO (01:43)
[2017-11-10 02:24] VITALS: BP 114/75
== END 2017-11-10 02:25 ==
LOC: ERH 21:18
PROVIDERS: Emergency Medicine
DX: R07.89 Other chest pain (principal)
CPT/HCPCS: 71046; 93005; 93010